=== PATIENT | female | born 1955 | race Caucasian/White ===

== ENCOUNTER → 2017-11-25 | Outpatient (CLI) | payer BC, OTHER ==
[~2017-11-25] MED LIST: MAGNESIUM PO; MULT-516 PO; VITAMIN D3 PO
== END | disposition home or self-care (01) ==
LOC: STAR 13:10
PROVIDERS: ATTEND Orthopaedic Surgery
DX: Z01.818 Encounter for other preprocedural examination (principal); M72.0 Palmar fascial fibromatosis [Dupuytren]; R94.31 Abnormal electrocardiogram [ECG] [EKG]
CPT/HCPCS: 93005

== ENCOUNTER 2017-12-03 11:58 | Day surgery (SDC) | payer BC, OTHER ==
[~2017-12-03] VITALS: Ht 170.2 cm; Wt 63.0 kg
[2017-12-03] MEDS ORDERED: LACTATED RINGERS 1,000 ML IV SCH (12:21)
[2017-12-03] MEDS ORDERED: MIDAZOLAM 1 MG/ML, 2ML ONE (13:43)
[2017-12-03] MEDS ORDERED: FENTANYL PF 250 MCG/5ML ONE (13:43)
[2017-12-03] MEDS ORDERED: BUPIVACAINE/PF 0.5% ONE (14:09)
[2017-12-03] MEDS ORDERED: CEFAZOLIN 1,000 MG ONE (14:21)
[2017-12-03] MEDS ORDERED: PROPOFOL 10 MG/ML, 20ML ONE (14:31)
[2017-12-03] MEDS ORDERED: DEXAMETHASONE 4 MG/ML, 1ML ONE (14:31)
[2017-12-03] MEDS ORDERED: BUPIVACAINE/PF 0.5% INFIL ONE (14:42)
[2017-12-03] MEDS ORDERED: ONDANSETRON 2MG/ML, 2ML ONE ×2 (14:52→15:21)
[2017-12-03] MEDS ORDERED: hydrALAzine 20 MG/ML, 1ML IV PRN (15:00)
[2017-12-03] MEDS ORDERED: ONDANSETRON 2MG/ML, 2ML IVPush PRN (15:00)
[2017-12-03] MEDS ORDERED: PROMETHAZINE 12.5 MG SUPP PR PRN (15:00)
[2017-12-03] MEDS ORDERED: MEPERIDINE/PF 25MG/0.5ML IVPush PRN (15:00)
[2017-12-03] MEDS ORDERED: LABETALOL 5MG/ML, 20ML IV PRN (15:00)
[2017-12-03] MEDS ORDERED: ACETAMINOPHEN 325 MG TABLET PO PRN (15:00)
[2017-12-03] MEDS ORDERED: OXYcodone 5 MG/5 ML ORAL.SOL UDC PO PRN (15:00)
[2017-12-03] MEDS ORDERED: HYDROmorphone 1 MG/ML, 1ML IV PRN (15:00)
[2017-12-03] MEDS ORDERED: ACETAMINOPHEN 650 MG/20.3 ML UDC ONE (15:17)
[2017-12-03] MEDS ORDERED: KETOROLAC 30 MG/1 ML ONE (15:17)
[2017-12-03] MEDS ORDERED: FENTANYL PF 100 MCG/2ML ONE (15:28)
[2017-12-03] MEDS: FENTANYL PF 100 MCG/2ML IV PRN ×2 (15:29→15:39)
[2017-12-03] MEDS ORDERED: KETOROLAC 30 MG/1 ML IVPush PRN (15:30)
== END 2017-12-03 17:30 | disposition home or self-care (01) ==
LOC: OUT 11:58
PROVIDERS: ATTEND Orthopaedic Surgery
DX: M72.0 Palmar fascial fibromatosis [Dupuytren] (principal)
CPT/HCPCS: 26123; J0690; J1100; J1885; J2250; J2405; J2704; J3010; J3490